=== PATIENT | female | born 1950 | race Caucasian/White ===

== ENCOUNTER 2016-12-22 08:56 | Inpatient (IN) | payer MEDICARE, OTHER ==
[~2016-12-22] VITALS: Ht 154.9 cm; Wt 68.8 kg
[~2016-12-22 08:56] MED LIST changes: -BENA25TA3 PO; -CELE50CA PO; -DOCU100C PO; -DOCU1CAP23 PO; -DOCU1CAP39 PO; -DULO1CAP PO; -DULO1CAP3 PO; -DULO20 PO; -GABA600T PO; -HYDR-3516 PO; -LACTCAP8 PO; -LISI-515 PO; -LISI-519 PO; -METF500 PO; -METF500T PO; -METH500T3 PO; -METO25TA3 PO; -MORP1TAB24 PO; -MSIR15 PO; -MULT-135 PO; -NEUR300C PO; -NEUR800T PO; -NEXI20CA PO; -NEXI40CA; -NEXI40CA PO; -NORC5TAB PO; -NYST15T TOPICAL; -PERI8.6T PO; -ROBA750T PO; -VERA40TA PO; -[UNRECOGNIZED DRUG - CODE]
[2016-12-22] MEDS ORDERED: ROBA750T PO (15:19)
[2016-12-22] MEDS ORDERED: CELE50CA PO (15:19)
[2016-12-22] MEDS ORDERED: GABA600T PO (15:19)
[2016-12-22] MEDS ORDERED: METF500T PO (15:19)
[2016-12-22] MEDS ORDERED: DOCU1CAP23 PO (15:19)
[2016-12-22] MEDS ORDERED: NEXI40CA PO (15:19)
[2016-12-22] MEDS ORDERED: MULT-135 PO (15:19)
[2016-12-22] MEDS ORDERED: LISI-515 PO (15:19)
[2016-12-26] MEDS ORDERED: BENA25TA3 PO (07:10)
[2016-12-26] MEDS ORDERED: DULO1CAP3 PO (07:11)
[2016-12-26] MEDS ORDERED: LACTCAP8 PO (07:13)
[2016-12-26 07:14] VITALS: BP 189/86; PULSE 81; RESP 20; TEMP 98.2; O2SAT 97
[2016-12-26] MEDS ORDERED: SODIUM CHLORIDE 0.9% INJ 100 ML ONE (07:14)
[2016-12-26] MEDS: LACTATED RINGER'S 1000 ML IV SCH (07:15)
[2016-12-26] MEDS ORDERED: CLINDAMYCIN 600 MG/NS 100 ML IV SCH ×2 (07:15)
[2016-12-26] MEDS ORDERED: INSULIN HUMAN REGULAR 1,000 UNITS/10 ML VIAL SQ PRN (07:15)
[2016-12-26] MEDS: SODIUM CHLORID 0.9% 500 ML IV SCH ×2 (07:15→23:55)
[2016-12-26] MEDS ORDERED: METOPROLOL TARTRATE 25 MG TAB PO PRN (07:15)
[2016-12-26] MEDS ORDERED: DEXAMETHASONE SOD PHOS 4 MG/ML VIAL ONE ×2 (08:08→10:27)
[2016-12-26] MEDS ORDERED: GELFOAM SIZE 100 ONE (08:08)
[2016-12-26] MEDS ORDERED: THROMBIN (TOPICAL) 5,000 UNIT VIAL ONE (08:08)
[2016-12-26] MEDS ORDERED: KETAMINE HCL 500 MG/5 ML VIAL ONE (08:08)
[2016-12-26] MEDS ORDERED: MIDAZOLAM HCL 2 MG/2 ML VIAL ONE ×2 (08:08→14:56)
[2016-12-26] MEDS ORDERED: FAMOTIDINE 20 MG/2 ML VIAL ONE (08:08)
[2016-12-26] MEDS ORDERED: GENTAMICIN SULFATE 80 MG/2 ML VIAL ONE (08:09)
[2016-12-26] MEDS ORDERED: LIDOCAINE 1%/EPINEPHrine 1:100,000 SOLN 20 ML VIAL ONE (08:10)
[2016-12-26] MEDS ORDERED: ACETAMINOPHEN 1000 MG/100 ML VIAL IV ONE (10:26)
[2016-12-26] MEDS ORDERED: SODIUM CHLORID 0.9% 500 ML INJ 500 ML IV ONE (10:49)
[2016-12-26] MEDS ORDERED: LACTATED RINGER'S 1000 ML INJ 2,000 ML IV ONE (10:49)
[2016-12-26] MEDS ORDERED: SODIUM CHLOR 0.9% 250 ML INJ 250 ML IV ONE (10:49)
[2016-12-26] MEDS ORDERED: ePHEDrine/NS 25 MG/5 ML SYR IV ONE (10:49)
[2016-12-26] MEDS ORDERED: PROPOFOL 200 MG/20 ML AMP IV ONE (10:49)
[2016-12-26] MEDS ORDERED: ONDANSETRON HCL 4 MG/2 ML VIAL IV PUSH ONE (10:49)
[2016-12-26] MEDS ORDERED: PHENYLEPHRINE HCL 10 MG/ML VIAL IV ONE (10:49)
[2016-12-26] MEDS ORDERED: PHENYLEPH/NS 1000 MCG/10 ML SYR IV ONE (10:49)
[2016-12-26] MEDS ORDERED: ARTIFICIAL TEARS OPTH OINT 3.5 APPLIC/3.5 GM TUBO ONE (11:14)
[2016-12-26] MEDS ORDERED: CLINDAMYCIN PHOS 600 MG/4 ML VIAL ONE (13:04)
[2016-12-26] MEDS ORDERED: fentaNYL CITRATE 250 MCG/5 ML AMP ONE (14:56)
[2016-12-26] MEDS ORDERED: NALOXONE HCL 0.4 MG/ML AMP IV PRN (15:45)
[2016-12-26] MEDS ORDERED: SODIUM CHLORIDE 0.9% FLUSH 5 ML FLUSH IVF PRN (15:45)
[2016-12-26 16:00] VITALS: BP 120/72; PULSE 85; RESP 16; TEMP 97; O2SAT 96
[2016-12-26] MEDS ORDERED: metFORMIN HCL 500 MG TAB PO PRN (16:00)
[2016-12-26] MEDS ORDERED: HYDROmorphone HCL PF 1 MG/ML VIAL IV PRN (16:00)
[2016-12-26] MEDS ORDERED: ONDANSETRON HCL 4 MG/2 ML VIAL IV PRN (16:00)
[2016-12-26] MEDS ORDERED: traMADol HCL 50 MG TAB PO PRN (16:00)
[2016-12-26] MEDS: D5-1/2 NS + KCL 20 MEQ INJ 1,000 ML IV SCH (16:10)
--- NOTE | 2016-12-26 16:12 | PD.OP ---
Operative Report Date of Surgery: Dec 26, 2016 Preoperative Diagnosis: (1) Cervical spinal stenosis (2) Cervical disc disorder with radiculopathy Postoperative Diagnosis: (1) Cervical spinal stenosis (2) Cervical disc disorder with radiculopathy Procedure: 1. C6-7 bilateral decompressive semi-laminectomy 2. Bilateral C6-7 foraminotomy 3. C5 C7 posterior fusion . Split iliac crest allograft, DBM 4. Posterior spinous process wiring 5. Left C5- C7 posterior spinal instrumentation, C7 pedicle screw fixation 6. Preparation of Iliac crest allograft for posterior cervical spinal fusion Anesthesia: Gen. endotracheal Surgeon: Quincy Bond Orthodontic Band Maker(s): Fariha Alvarez Operation and Findings: Procedure in detail: The patient was brought into the operating room and general endotracheal anesthesia induced without difficulty. Lines were established by anesthesia Knee high sequential compression devices were placed Appropriate time-out procedure was performed with all personnel present and in agreement The Reveles 3 point fixation device was placed. The patient was in a cervical collar for positioning Leads for intraoperative neuro monitoring were placed in a baseline study obtained The patient was turned into prone position on the Filipe table with the side bolsters with the undersigned maintaining control of the head and neck. The head and neck were secured to the operating room table with the Reveles adapter with the neck in neutral position. The neck position was checked with intraoperative C-arm and felt to be satisfactory. The cervical collar was removed. All extremities were appropriately padded. The back of the head and neck were shaved with clippers and sterilely prepped and draped. 1% Xylocaine with epinephrine was used for local infiltration over the incision site was made in the midline posterior neck and carried sharply down to the spinous processes of C5-C7 The handy elevator used for subperiosteal elevation of paraspinous musculature and fascia away from the bilateral lamina and facet at the C5-C7 levels Significant facet hypertrophy and osteophyte formation was noted at all levels There was noted to be severe disruption of the interspinous ligament at the C6- C7 level, with obvious significant facet instability Based on these findings, it was elected to proceed with the posterior instrumentation to stabilize the C6-C7 segment prior to decompression. The TPS drill with the small bone bur was used to decorticate the entry point into the left C7 pedicle. Since the patient's preoperative CT scan imaging revealed a relatively small right C7 pedicle as well as small right C5 and C6 and C7 lateral mass, it was elected to perform the instrumentation only on the left side. The small pedicle finder was used to verify the pedicle, followed by hand drilling the left C7 pedicle to 10 mm depth. The pedicle was again checked with the ball-tip probe to make sure that there was no breakout, prior to screw placement. The left C7 pedicle was tapped to depth of 10 mm and the variable angle pedicle screw was placed. An initial attempt was made to place a lateral mass screw at the left C6 level, however the lateral mass was rather small and fragile and would not adequately accommodate the screw. Thus it was elected to place a lateral mass screw at the left L4-5 level, where the lateral mass was drilled and tapped to a depth of 10 mm with the ball-tip probe used to check the lateral mass screw site prior to placement of the 10 mm variable-angle screw. The small connecting medina was temporarily secured at the left C5-C7 level to avoid excessive motion during the decompression. The small bone bur was used to decorticate the facet and posterolateral structures at the C5-C7 level prior to placement of the medina , and any bone shavings saved for graft material. The microscope was brought into place and used for the decompression portion of the procedure. The inferior C6 and superior C7 lamina were removed with the TPS drill and the Kerrison rongeur to further decompress the spinal cord at these levels. Significantly hypertrophied ligamentum flavum was then lifted away from the thecal sac and further removed with a Kerrison rongeur. The dorsal lateral thecal sac appeared well decompressed at the end of the laminectomy portion of the procedure with good pulsations of the CSF space. At the bilateral C6-C7 level, the neural foramen was palpated with the blunt micro-nerve hook, and there appeared to be significant facet hypertrophy impinging on the exiting nerve root. The foraminotomy was performed at this level using the small radha bur to remove the overlying facet down to a thin shell of cortical bone overlying the nerve root. The thin ligament dissector and 1 and 2 mm thin foot plate Kerrison rongeurs were then used to elevate and remove the remaining bone away from the dorsal aspect of the nerve root to perform the foraminotomy. The exiting right and left C7 nerve appeared well decompressed at the end of this portion of the procedure. The Rhoton dissectors were used to palpate ventral to the exiting C7 nerve root on each side and no significant herniated disc material was encountered ventral to the nerve root. On the left side, the micro-nerve hook was used to probe along the C7 pedicle and no breakout of the screw was noted. The locking caps were then all final tightened using the torque screwdriver and the anti-torque device at the left C5-7 level. The region was well irrigated with antibiotic irrigation. The retained lamina autograft and a small amount of demineralized bone matrix was packed along the posterior lateral decorticated structures as well as into the decorticated bilateral C5-C6-C7 facet on each side. Since the patient appeared quite unstable at the C6-7 level, and instrumentation could only be placed on the left side, it was elected to further reinforce the construct with a posterior spinous process-lamina split iliac crest allograft bone graft and spinous process wiring. The piece of properly prepared iliac tricortical graft was cut with the straight oscillating saw to the appropriate dimensions and contoured to fit against the decorticated C5, C6, C7 spinous processes. The small bur was used to place a hole on each end of the grafts as well as the C5 and C7 spinous process. The Codman soft wire was used to secure the bone grafts to the C5 and C7 spinous processes. Prior to final tightening, additional DBM and retained autograft bone was placed between the spinous processes and lamina and the adjacent split iliac crest graft for additional fusion mass. The soft wire excess cable was then cut. The entire construct was checked with intraoperative C-arm and visual inspection felt to be satisfactory. The neural structures were carefully checked prior to final closure and felt to be well decompressed. The region was well irrigated with antibiotic irrigation. Bleeding was carefully controlled with bipolar forceps A 7 mm flat fluted drain was left at the operative site and brought out through an incision in the upper thoracic region and secured to the skin with nylon suture The closure was performed with 0 Vicryl interrupted for the deep and superficial fascia with 3-0 Vicryl interrupted subcutaneous closure and 4-0 Vicryl subcutaneous closure. A dressing of sterile Mastisol and Steri-Strips and a Primapore dressing was placed. The patient was placed back in a cervical collar and released from the [place] adapter and turned back into supine position on the recovery room bed. The Reveles 3 point fixation device was then removed. The patient was taken to recovery room in stable condition All counts were correct at the end of the case. Estimated blood loss was 100 cc No specimen was sent to pathology Neural monitoring remained stable during the procedure Quincy Bond MD Dec 26, 2016 16:12
[2016-12-26] MEDS ORDERED: diphenhydrAMINE HCL 25 MG CAP PO PRN (16:15)
[2016-12-26] MEDS ORDERED: GLUCAGON 1 MG/ML VIAL OTHER PRN (16:15)
[2016-12-26] MEDS ORDERED: DEXTROSE 50% IN WATER 50 ML VIAL(D50) IV PUSH PRN (16:15)
[2016-12-26] MEDS ORDERED: *morphine SULFATE 8 MG/ML PERIprocedure ONLY ONE (16:17)
[2016-12-26] MEDS: ACETAMINOPHEN/HYDROcodone 325 MG/10 MG TAB PO PRN ×2 (17:23→21:36)
--- NOTE | 2016-12-26 17:58 | RADRPT ---
EXAM DATE/TIME: 12/26/2016 16:45 [facility] COMPARISON: CT CERVICAL SPINE W/O CONTRAST, July 20, 2016, 19:12. INDICATIONS : Assess C5-C7 instrumentation post op RADIATION DOSE: 42.85 CTDIvol (mGy) MEDICAL HISTORY : Cerebrovascular disease. Hypertension. SURGICAL HISTORY : Cholecystectomy. Appendectomy.Hysterectomy. ENCOUNTER: Initial ACUITY: 1 day PAIN SCALE: 5/10 LOCATION: neck TECHNIQUE: Volumetric scanning of the cervical spine was performed. Multiplanar reconstructions in the sagittal, coronal and oblique axial planes were performed. Using automated exposure control and adjustment o f the mA and/or kV according to patient size, radiation dose was kept as low as reasonably achievable to obtain optimal diagnostic quality images. FINDINGS: Patient status post anterior cervical fusion C4-5 and C5-6. There is posterior fusion on the left antoinette e at C5-7. There appears to be good alignment of the cervical spine. Postsurgical changes are noted p osteriorly. The hardware appears to be grossly intact. There is a mild narrowing of the neural forami na left-sided C2-C3. There is mild narrowing of the neural foramina right-sided C3-4. No significant extradural defects are seen at C4-5, C5-6. The neural foramina appear to be patent at these levels. N o significant extradural defects are seen at C6-7 and C7-T1. CONCLUSION: Status post anterior cervical fusion at C4-5 and C5-6. There is posterior fusion on the left-sided fr om C5-C7. The there appears to be good alignment of the cervical spine. Postsurgical changes are note d posteriorly at C5-C7. The hardware is grossly intact. Rodney Johns MD on December 26, 2016 at 17:49 Board Certified Radiologist. This report was verified electronically.
[2016-12-26 19:38] VITALS: O2SAT 95
[2016-12-26 20:05] VITALS: BP 109/62; PULSE 94; RESP 18; TEMP 96; O2SAT 94
[2016-12-26] MEDS: SODIUM CHLORIDE 0.9% FLUSH 5 ML FLUSH IVF SCH (20:22)
[2016-12-26] MEDS: METHOCARBAMOL 500 MG TAB PO PRN (20:23)
[2016-12-26] MEDS: DOCUSATE SODIUM 100 MG CAP PO SCH (20:23)
[2016-12-26] MEDS: GABAPENTIN 300 MG CAP PO SCH (20:23)
[2016-12-26] MEDS: LISINOPRIL 20 MG TAB PO SCH (20:24)
[2016-12-26] MEDS: INSULIN NovoLIN REGULAR SUPPLEMENTAL SCALE SQ SCH (20:34)
[2016-12-26] MEDS ORDERED: NON-FORMULARY DRUG (Esomeprazole DR (Nexium) 40 MG) PO SCH (21:00)
[2016-12-26] MEDS ORDERED: DOCUSATE SODIUM 250 MG PO SCH (21:00)
--- NOTE | 2016-12-26 21:10 | RADRPT ---
EXAM DATE/TIME: 12/26/2016 10:00 [facility] COMPARISON: No previous studies available for comparison. INDICATIONS : C5-C7 fusion. MEDICAL HISTORY : None. SURGICAL HISTORY : C4-C6 fusion. ENCOUNTER: Initial ACUITY: 1 day PAIN SCORE: Non-responsive. LOCATION: Bilateral cervical spine. FINDINGS: Two projection examination was performed. Patient is status post anterior and posterior cervical fusi on. There appears to be good alignment of the cervical spine infusion on these 2 views. CONCLUSION: Good alignment on this postoperative view. Rodney Johns MD on December 26, 2016 at 21:07 Board Certified Radiologist. This report was verified electronically.
[2016-12-27] VITALS (7 sets, daily range): BP systolic 131–198; BP diastolic 70–102; PULSE 82–100; RESP 16–20; TEMP 96.5–98.8; O2SAT 92–97
[2016-12-27] MEDS: ACETAMINOPHEN/HYDROcodone 325 MG/10 MG TAB PO PRN ×5 (02:00→21:24)
[2016-12-27] MEDS: D5-1/2 NS + KCL 20 MEQ INJ 1,000 ML IV SCH ×3 (02:00→22:00)
[2016-12-27 06:21] LABS: AUTOMATED NEUTROPHIL # 12.5 TH/MM3 (1.8-7.7); BASOPHIL # 0.2 TH/MM3 (0-0.2); EOSINOPHIL # 0.1 TH/MM3 (0-0.4); EOSINOPHIL % 0.7 % (0.0-4.0); HEMATOCRIT 33.1 % (35.0-46.0); LYMPH % 23.7 % (9.0-44.0); LYMPHOCYTE # 4.7 TH/MM3 (1.0-4.8); MEAN CELL VOLUME 83.5 FL (80.0-100.0); MEAN CORPUSCULAR HEMOGLOBIN 29.1 PG (27.0-34.0); MEAN CORPUSCULAR HGB CONC 34.9 % (32.0-36.0); MONO % 11.6 % (0.0-8.0); PLATELET COUNT 334 TH/MM3 (150-450); RED BLOOD COUNT 3.96 MIL/MM3 (4.00-5.30); RED CELL DISTRIBUTION WIDTH 13.8 % (11.6-17.2); WHITE BLOOD COUNT 19.9 TH/MM3 (4.0-11.0)
[2016-12-27 06:27] LABS: HEMO FLAGS AUTO DIFF
[2016-12-27] MEDS: INSULIN NovoLIN REGULAR SUPPLEMENTAL SCALE SQ SCH ×4 (06:30→21:22)
[2016-12-27 06:52] LABS: BICARBONATE 28.8 MEQ/L (21.0-32.0); POTASSIUM 3.8 MEQ/L (3.5-5.1)
[2016-12-27] MEDS: LACTATED RINGER'S 1000 ML IV SCH (07:15)
[2016-12-27 07:44] LABS: SCAN/DIFF AUTO DIFF CONFIRMED
[2016-12-27] MEDS ORDERED: PANTOPRAZOLE SOD 40 MG DELAYED RELEASE TAB PO SCH (09:00)
[2016-12-27] MEDS: LISINOPRIL 20 MG TAB PO SCH ×2 (09:33→21:23)
[2016-12-27] MEDS: DOCUSATE SODIUM 100 MG CAP PO SCH ×2 (09:40→21:23)
[2016-12-27] MEDS: MULTIVITAMIN TAB PO SCH (09:40)
[2016-12-27] MEDS: LACTOBACILLUS ACIDOPHILUS TAB PO SCH (09:40)
[2016-12-27] MEDS: DULoxetine HCl DR 60 MG CAP PO SCH (09:40)
[2016-12-27] MEDS: SODIUM CHLORIDE 0.9% FLUSH 5 ML FLUSH IVF SCH ×2 (09:41→21:24)
[2016-12-27] MEDS: GABAPENTIN 300 MG CAP PO SCH ×2 (09:41→21:23)
[2016-12-27] MEDS: METHOCARBAMOL 500 MG TAB PO PRN (09:55)
[2016-12-27] MEDS: hydrALAZINE HCL 10 MG TAB PO PRN (19:36)
--- NOTE | 2016-12-27 20:52 | HHI.NSPN ---
History Chief Complaint: headache, neck and shoulder pain. Interval History Date of Surgery: Dec 26, 2016 Preoperative Diagnosis: (1) Cervical spinal stenosis (2) Cervical disc disorder with radiculopathy Postoperative Diagnosis: (1) Cervical spinal stenosis (2) Cervical disc disorder with radiculopathy Procedure: 1. C6-7 bilateral decompressive semi-laminectomy 2. Bilateral C6-7 foraminotomy 3. C5 C7 posterior fusion . Split iliac crest allograft, DBM 4. Posterior spinous process wiring 5. Left C5- C7 posterior spinal instrumentation, C7 pedicle screw fixation 6. Preparation of Iliac crest allograft for posterior cervical spinal fusion 12/27/16: Significant persistent drain output. Positive headache. Upper extremity sensorimotor function improved postoperative. Exam Results Vital Signs Date Time Temp Pulse Resp B/P Pulse Ox O2 Delivery O2 Flow Rate FiO2 12/27/16 20:01 98.0 100 20 198/102 92 12/27/16 10:02 Nasal Cannula 21 12/26/16 16:30 2 Intake and Output 12/26/16 12/26/16 12/27/16 08:00 16:00 00:00 Intake Total 3100 ml 555 ml Output Total 1000 ml 805 ml Balance 2100 ml -250 ml Physical Examination Respirations clear Cardiac regular No significant extremity edema Dressing dry and intact Significant discomfort across her right and left shoulder with complaint of increased neck and shoulder pain with upper extremity movement Sensation much improved to light touch in the upper extremities versus preoperative. Strength 4/5 left triceps and hand intrinsics Moderate positive Alisia's Significant serosanguineous drainage from the operative site drain Lab, Micro, Other Results Laboratory Tests Test 12/27/16 05:57 White Blood Count 19.9 TH/MM3 Red Blood Count 3.96 MIL/MM3 Hemoglobin 11.5 GM/DL Hematocrit 33.1 % Mean Corpuscular Volume 83.5 FL Mean Corpuscular Hemoglobin 29.1 PG Mean Corpuscular Hemoglobin 34.9 % Concent Red Cell Distribution Width 13.8 % Platelet Count 334 TH/MM3 Mean Platelet Volume 9.5 FL Neutrophils (%) (Auto) 63.0 % Lymphocytes (%) (Auto) 23.7 % Monocytes (%) (Auto) 11.6 % Eosinophils (%) (Auto) 0.7 % Basophils (%) (Auto) 1.0 % Neutrophils # (Auto) 12.5 TH/MM3 Lymphocytes # (Auto) 4.7 TH/MM3 Monocytes # (Auto) 2.3 TH/MM3 Eosinophils # (Auto) 0.1 TH/MM3 Basophils # (Auto) 0.2 TH/MM3 CBC Comment AUTO DIFF Differential Comment AUTO DIFF CONFIRMED Sodium Level 143 MEQ/L Potassium Level 3.8 MEQ/L Chloride Level 106 MEQ/L Carbon Dioxide Level 28.8 MEQ/L Anion Gap 8 MEQ/L Blood Urea Nitrogen 8 MG/DL Creatinine 0.76 MG/DL Estimat Glomerular Filtration 76 ML/MIN Rate Random Glucose 250 MG/DL Calcium Level 8.1 MG/DL Medical Decision Making Impression and Plan Impression: 1. Neurologic symptoms and exam improved postoperative 2. Persistent increased operative site drain output. Monitor for possible CSF leak 3. Diabetes 4. Hypertension Plan: Findings discussed with the patient and her family in the room. Continue physical therapy Continue present pain medications Continue drain and monitor output. There is some concern regarding CSF leak given the quantity and appearance of the drain as well as positive headache. Continue insulin sliding scale Quincy Bond MD Dec 27, 2016 20:52
[2016-12-27] MEDS: MORPHINE SULFATE 4 MG/ML INJ IV PRN (23:56)
[2016-12-27] MEDS: PANTOPRAZOLE SOD 40 MG DELAYED RELEASE TAB PO SCH (23:56)
[2016-12-28 00:02] VITALS: BP 201/102; PULSE 97; RESP 20; TEMP 98.3; O2SAT 94
[2016-12-28] MEDS: METHOCARBAMOL 500 MG TAB PO PRN ×3 (00:22→20:55)
[2016-12-28] MEDS: ACETAMINOPHEN/HYDROcodone 325 MG/10 MG TAB PO PRN ×5 (03:39→22:36)
[2016-12-28] MEDS: hydrALAZINE HCL 10 MG TAB PO PRN ×2 (03:39→14:26)
[2016-12-28 04:01] VITALS: BP 192/100; PULSE 90; RESP 20; TEMP 99.1; O2SAT 93
[2016-12-28] MEDS: MORPHINE SULFATE 4 MG/ML INJ IV PRN ×3 (06:22→14:22)
[2016-12-28] MEDS: PANTOPRAZOLE SOD 40 MG DELAYED RELEASE TAB PO SCH ×2 (06:47→17:54)
[2016-12-28] MEDS: INSULIN NovoLIN REGULAR SUPPLEMENTAL SCALE SQ SCH ×4 (06:48→20:56)
[2016-12-28] MEDS: LACTATED RINGER'S 1000 ML IV SCH (07:15)
[2016-12-28 08:00] VITALS: BP 122/90; PULSE 88; RESP 16; TEMP 98.4; O2SAT 95
[2016-12-28] MEDS: D5-1/2 NS + KCL 20 MEQ INJ 1,000 ML IV SCH (08:00)
[2016-12-28] MEDS: LISINOPRIL 20 MG TAB PO SCH ×2 (08:53→20:55)
[2016-12-28] MEDS: GABAPENTIN 300 MG CAP PO SCH ×2 (08:54→20:56)
[2016-12-28] MEDS: LACTOBACILLUS ACIDOPHILUS TAB PO SCH (08:54)
[2016-12-28] MEDS: DULoxetine HCl DR 60 MG CAP PO SCH (08:54)
[2016-12-28] MEDS: DOCUSATE SODIUM 100 MG CAP PO SCH ×2 (08:54→20:55)
[2016-12-28] MEDS: SODIUM CHLORIDE 0.9% FLUSH 5 ML FLUSH IVF SCH ×2 (08:56→20:56)
[2016-12-28] MEDS: MULTIVITAMIN TAB PO SCH (09:00)
[2016-12-28 12:00] VITALS: BP 190/96; PULSE 90; RESP 16; TEMP 99.8; O2SAT 94
[2016-12-28 16:00] VITALS: BP 146/93; PULSE 86; RESP 16; TEMP 97.4; O2SAT 97
--- NOTE | 2016-12-28 18:47 | HHI.NSPN ---
History Chief Complaint: headache, neck and shoulder pain. Interval History Date of Surgery: Dec 26, 2016 Preoperative Diagnosis: (1) Cervical spinal stenosis (2) Cervical disc disorder with radiculopathy Postoperative Diagnosis: (1) Cervical spinal stenosis (2) Cervical disc disorder with radiculopathy Procedure: 1. C6-7 bilateral decompressive semi-laminectomy 2. Bilateral C6-7 foraminotomy 3. C5 C7 posterior fusion . Split iliac crest allograft, DBM 4. Posterior spinous process wiring 5. Left C5- C7 posterior spinal instrumentation, C7 pedicle screw fixation 6. Preparation of Iliac crest allograft for posterior cervical spinal fusion 12/27/16: Significant persistent drain output. Positive headache. Upper extremity sensorimotor function improved postoperative. 12/28/16: Persistent significant neck and shoulder pain. Not well controlled with oral medications as far. Sensation improved in upper extremities and gait improved compared to preoperative. Drain discontinued. Exam Results Vital Signs Date Time Temp Pulse Resp B/P Pulse Ox O2 Delivery O2 Flow Rate FiO2 12/28/16 12:00 99.8 90 16 190/96 94 12/28/16 07:15 Room Air 12/27/16 10:02 21 12/26/16 16:30 2 Intake and Output 12/27/16 12/27/16 12/28/16 08:00 16:00 00:00 Intake Total 480 ml 600 ml 480 ml Output Total 1425 ml 2300 ml 580 ml Balance -945 ml -1700 ml -100 ml Physical Examination Respirations clear Cardiac regular No significant extremity edema Dressing dry and intact Significant discomfort across her right and left shoulder with complaint of increased neck and shoulder pain with upper extremity movement Sensation much improved to light touch in the upper extremities versus preoperative. Strength 4/5 left triceps and hand intrinsics Moderate positive Alisia's drain discontinued Medical Decision Making Impression and Plan Impression: 1. Neurologic symptoms and exam improved postoperative 2. Drain discontinued. No definite evidence of CSF leak. Headache improved. 3. Diabetes 4. Hypertension Plan: Findings discussed with the patient and her family in the room. Continue physical therapy Will add MS Contin for additional pain control. Drains discontinued. Monitor wound site for any significant drainage. Continue insulin sliding scale Plan discharge home in a.m. 12/29/16. Patient needs to make arrangements for additional assistance at home. Home physical therapy. Quincy Bond MD Dec 28, 2016 18:47
[2016-12-28] MEDS ORDERED: HYDR-3533 PO (18:52)
[2016-12-28] MEDS ORDERED: MORP1TAB24 PO (18:52)
[2016-12-28] MEDS ORDERED: METH500T3 PO (18:52)
--- NOTE | 2016-12-28 18:52 | HHI.DCPOC ---
Discharge Care Plan Diagnosis: (1) Cervical spinal stenosis (2) Cervical disc disease with myelopathy Your Health Problems Are: Difficulty with ADL Incision/Drains Exercise Tolerance Chronic Pain Goals to Promote Your Health * To prevent worsening of your condition and complications * To maintain your health at the optimal level Directions to Meet Your Goals Take your medications as prescribed Follow your dietary instruction Follow activity as directed Keep your appointments as scheduled Take your immunizations and boosters as scheduled If your symptoms worsen call your PCP, if no PCP go to Urgent Care Center or Emergency Room Smoking is Dangerous to Your Health. Avoid second hand smoke Call the 24-hour hour crisis hotline for domestic abuse at Quincy Bond MD Dec 28, 2016 18:52
--- NOTE | 2016-12-28 18:56 | HHI.DS ---
Discharge Summary Admission Date Dec 26, 2016 at 06:22 Discharge Date: Dec 29, 2016 Admitting Diagnosis Cervical stenosis Cervical myelopathy Diabetes Hypertension (1) Cervical spinal stenosis Diagnosis: Secondary ICD Code: M48.02 (2) Cervical disc disease with myelopathy Diagnosis: Principal ICD Code: M50.00 (3) DM type 2 (diabetes mellitus, type 2) Diagnosis: Secondary ICD Code: E11.9 (4) HTN (hypertension) Diagnosis: Secondary ICD Code: I10 CBC/BMP: 12/27/16 0557 12/27/16 0557 Significant Findings Laboratory Tests Test 12/27/16 05:57 White Blood Count 19.9 TH/MM3 (4.0-11.0) Red Blood Count 3.96 MIL/MM3 (4.00-5.30) Hemoglobin 11.5 GM/DL (11.6-15.3) Hematocrit 33.1 % (35.0-46.0) Monocytes (%) (Auto) 11.6 % (0.0-8.0) Neutrophils # (Auto) 12.5 TH/MM3 (1.8-7.7) Monocytes # (Auto) 2.3 TH/MM3 (0-0.9) Estimat Glomerular Filtration 76 ML/MIN (>89) Rate Random Glucose 250 MG/DL (74-106) Calcium Level 8.1 MG/DL (8.5-10.1) Imaging Last Impressions Cervical Spine X-Ray 12/26/16 0000 Signed Impressions: Service Date/Time: Monday, December 26, 2016 10:00 - CONCLUSION: Good alignment on this postoperative view. Rodney Johns MD Cervical Spine CT 12/26/16 0000 Signed Impressions: Service Date/Time: Monday, December 26, 2016 16:45 - CONCLUSION: Status post anterior cervical fusion at C4-5 and C5-6. There is posterior fusion on the left-sided from C5-C7. The there appears to be good alignment of the cervical spine. Postsurgical changes are noted posteriorly at C5-C7. The hardware is grossly intact. Rodney Johns MD PE at Discharge Awake and alert Respirations clear Heart rate regular No significant extremity edema Incision dry and intact Sensation mildly diminished light touch in the hands but improved compared to preoperative Strength normal upper and lower extremities Moderate bilateral Alisia's response Pt Condition on Discharge: Stable Discharge Disposition: Disch w/ Home Health Serv Discharge Instructions DIET: Follow Instructions for: Diabetic Diet ACTIVITIES You can perform: Weight Bearing As Geoff Activities to Avoid: Lifting/Bending, Strenuous Activity Follow up Referrals: Home Health - Next Day Physical Therapy New Medications: Methocarbamol (Methocarbamol) 500 Mg Tab 500 MG PO Q8HR PRN SPASM #30 Ref 0 TAB Morphine ER (Morphine ER) 15 Mg Tab 15 MG PO Q12HR Pain Management #20 Ref 0 TAB Continued Medications: Diphenhydramine (Benadryl Allergy) 25 Mg Tab 25 MG PO HS PRN ALLERGIES Ref 0 TAB Docusate Sodium (Stool Softener Extra Strength) 250 Mg Cap 250 MG PO BID CAP Duloxetine DR (Duloxetine DR) 60 Mg Capdr 60 MG PO DAILY #30 Ref [address] (Nexium) 40 Mg Capdr 40 MG PO BID Ref 0 CAP Gabapentin (Gabapentin) 600 Mg Tab 600 MG PO BID #60 Ref 0 TAB Hydralazine (Hydralazine) 10 Mg Tab 20 MG PO Q8HR Take with a meal check BP at home 2-3 x per day PRN SBP>180, DBP> 110 #30 Ref 0 TAB Hydrocodone-Acetaminophen (Lortab) 5-325 Mg Tab 1 TAB PO Q6HR PRN PAIN #60 Ref 0 TAB (This prescription has been renewed) Lactobacillus Acidophilus (Probiotic) 1 Cap Cap 1 CAP PO DAILY Nutritional Supplement #90 Ref 0 CAP Lisinopril (Lisinopril) 20 Mg Tab 20 MG PO BID #30 Ref 0 TAB Metformin (Metformin) 500 Mg Tab 500 MG PO DIRECTED 1 TAB BEFORE MEAL IF BLOOD SUGAR IS GREATER THAN 120. Blood Sugar Management #90 Ref 0 TAB Methocarbamol (Robaxin) 750 Mg Tab 750 MG PO TID Muscle Spasm Ref 0 TAB Multiple Vitamin (Multi Vitamin) 1 Tab Tab 1 TAB PO DAILY TAB Quincy Bond MD Dec 28, 2016 18:56
--- NOTE | 2016-12-28 19:05 | HHI.FF ---
Face to Face Verification Diagnosis: (1) Cervical spinal stenosis (2) Cervical disc disease with myelopathy (3) HTN (hypertension) Physical Therapy Order: Evaluate and Treat, Improve ambulation, Strength and gait training Home Health Nursing Order: Medical education Wound care and dressing changes I have seen patient Caprice Salas on 12/28/16. My clinical findings support the need for the requested home health care services because: Ltd mobility - disease progression Deconditioned w/ increased weakness Limited ability to care for self High risk of falls I certify that my clinical findings support that this patient is homebound because: Post-op weakness Unsteady gait/balance Quincy Bond MD Dec 28, 2016 19:05
[2016-12-28 20:01] VITALS: BP 101/69; PULSE 108; RESP 20; TEMP 96; O2SAT 95
[2016-12-28] MEDS: MORPHINE SULFATE 15 MG CONTROLLED RELEASE TAB PO SCH (20:56)
[2016-12-29 00:30] VITALS: BP 133/77; PULSE 94; RESP 20; TEMP 98.4; O2SAT 96
[2016-12-29] MEDS: ACETAMINOPHEN/HYDROcodone 325 MG/10 MG TAB PO PRN (03:22)
[2016-12-29] MEDS: PANTOPRAZOLE SOD 40 MG DELAYED RELEASE TAB PO SCH (06:53)
[2016-12-29] MEDS: INSULIN NovoLIN REGULAR SUPPLEMENTAL SCALE SQ SCH ×2 (06:53→11:35)
[2016-12-29 08:00] VITALS: BP 137/80; PULSE 116; RESP 18; TEMP 99.5; O2SAT 94
[2016-12-29] MEDS: DOCUSATE SODIUM 100 MG CAP PO SCH (08:44)
[2016-12-29] MEDS: LACTOBACILLUS ACIDOPHILUS TAB PO SCH (08:44)
[2016-12-29] MEDS: DULoxetine HCl DR 60 MG CAP PO SCH (08:45)
[2016-12-29] MEDS: LISINOPRIL 20 MG TAB PO SCH (08:45)
[2016-12-29] MEDS: MULTIVITAMIN TAB PO SCH (08:45)
[2016-12-29] MEDS: GABAPENTIN 300 MG CAP PO SCH (08:45)
[2016-12-29] MEDS: MORPHINE SULFATE 15 MG CONTROLLED RELEASE TAB PO SCH (08:46)
[2016-12-29] MEDS: METHOCARBAMOL 500 MG TAB PO PRN (08:49)
[2016-12-29] MEDS: SODIUM CHLORIDE 0.9% FLUSH 5 ML FLUSH IVF SCH (08:50)
[2016-12-29 11:29] VITALS: BP 116/75; PULSE 103; RESP 18; TEMP 100.4; O2SAT 94
[2017-01-04] MEDS ORDERED: HYDR-3533 PO (11:21)
[2017-01-04] MEDS ORDERED: HYDR10TA23 PO (11:21)
[2017-01-04] MEDS ORDERED: MORP1TAB24 PO (11:21)
[2017-02-15] MEDS ORDERED: HYDR10TA23 PO (14:08)
[2017-02-15] MEDS ORDERED: HYDR-3533 PO (16:38)
[2017-03-29] MEDS ORDERED: HYDR-3533 PO (12:03)
== END 2016-12-29 11:49 | disposition home health service (06) | DRG 473 ==
LOC: HSDI 12-26 06:22 → N06B 12-26 17:24
PROVIDERS: ADMIT Neurological Surgery; ATTEND Neurological Surgery
PROC: 0RG207J Fusion of 2 or more Cervical Vertebral Joints with Autologous Tissue Substitute, Posterior Approach, Anterior Column, Open Approach (ICD-10-PCS; principal; 2016-12-26 08:26)
DX: M50.023 Cervical disc disorder at C6-C7 level with myelopathy (principal); M50.022 Cervical disc disorder at C5-C6 level with myelopathy; I10 Essential (primary) hypertension; M48.02 Spinal stenosis, cervical region; E11.9 Type 2 diabetes mellitus without complications
CPT/HCPCS: 72040; 72125; 76000; 80048; 82948; 85025; 94150; C1713; J0131; J1100; J1580; J2250; J2270; J2370; J2405; J3010; J3480; J7040; J7050; J7120; L0150; L0172

== ENCOUNTER → 2016-12-22 | Outpatient (CLI) | payer MEDICARE, OTHER ==
[~2016-12-22] MED LIST: BENA25TA3 PO; CELE50CA PO; DOCU100C PO; DOCU1CAP23 PO; DOCU1CAP39 PO; DULO1CAP PO; DULO1CAP3 PO; DULO20 PO; GABA600T PO; HYDR-3516 PO; HYDR-3533 PO; HYDR10TA23 PO; LACTCAP8 PO; LISI-515 PO; LISI-519 PO; METF500 PO; METF500T PO; METH500T3 PO; METO25TA3 PO; MORP1TAB24 PO; MSIR15 PO; MULT-135 PO; NEUR300C PO; NEUR800T PO; NEXI20CA PO; NEXI40CA; NEXI40CA PO; NORC5TAB PO; NYST15T TOPICAL; PERI8.6T PO; ROBA750T PO; VERA40TA PO; [UNRECOGNIZED DRUG - CODE]
[2016-12-22 11:22] LABS: HDL CHOLESTEROL 55.5 MG/DL (40.0-60.0); LDL CHOLESTEROL 134 MG/DL (0-99)
[2016-12-22 13:54] LABS: HEMOGLOBIN A1b 1.7 %; HEMOGLOBIN P3 3.6 %
== END ==
LOC: CLAB 09:01
DX: I10 Essential (primary) hypertension (principal); E11.9 Type 2 diabetes mellitus without complications; E55.9 Vitamin D deficiency, unspecified; R53.83 Other fatigue; Z12.11 Encounter for screening for malignant neoplasm of colon
CPT/HCPCS: 36415; 80053; 80061; 82306; 82607; 83036; 84443; 85027; 85610; 85730

== ENCOUNTER → 2016-12-22 | Outpatient (CLI) | payer MEDICARE, OTHER ==
[2016-12-22 10:35] LABS: HEMATOCRIT 40.6 % (35.0-46.0); MEAN CORPUSCULAR HEMOGLOBIN 28.7 PG (27.0-34.0); MEAN CORPUSCULAR HGB CONC 34.5 % (32.0-36.0); PLATELET COUNT 449 TH/MM3 (150-450); RED CELL DISTRIBUTION WIDTH 13.8 % (11.6-17.2); REVIEW FLAG FINAL; WHITE BLOOD COUNT 12.5 TH/MM3 (4.0-11.0)
[2016-12-22 10:43] LABS: APTT (PATIENT) 25.4 SEC (24.3-30.1); PROTHROMBIN TIME - PATIENT 11.4 SEC (9.8-11.6)
[2016-12-22 11:00] LABS: ALKALINE PHOSPHATASE 102 U/L (45-117); ALT (GPT) 15 U/L (10-53); ANION GAP 7 MEQ/L (5-15); AST (GOT) 13 U/L (15-37); BICARBONATE 31.6 MEQ/L (21.0-32.0); BLOOD UREA NITROGEN 10 MG/DL (7-18); CHLORIDE 103 MEQ/L (98-107); GLOMERULAR FILTRATION RATE 72 ML/MIN (>89); GLUCOSE,FASTING 118 MG/DL (74-99); POTASSIUM 3.6 MEQ/L (3.5-5.1); SODIUM (NA) 142 MEQ/L (136-145); TOTAL BILIRUBIN ADULT 0.4 MG/DL (0.2-1.0)
== END ==
LOC: CPRE 08:43
PROVIDERS: ATTEND Neurological Surgery
DX: Z01.812 Encounter for preprocedural laboratory examination (principal); M48.06 Spinal stenosis, lumbar region; M54.16 Radiculopathy, lumbar region; E11.9 Type 2 diabetes mellitus without complications; E78.4 Other hyperlipidemia; Z79.01 Long term (current) use of anticoagulants
CPT/HCPCS: 36415; 80053; 85027; 85610; 85730

== ENCOUNTER → 2017-02-15 | Outpatient (CLI) | payer MEDICARE, OTHER ==
[~2017-02-15] MED LIST changes: +BENA25TA3 PO; +DOCU1CAP23 PO; +DULO1CAP3 PO; +GABA600T PO; +LACTCAP8 PO; +LISI-515 PO; +METF500T PO; +METH500T3 PO; +MORP1TAB24 PO; +MULT-135 PO; +NEXI40CA PO; +ROBA750T PO
--- NOTE | 2017-02-15 14:31 | RADRPT ---
EXAM DATE/TIME: 02/15/2017 11:13 [facility] COMPARISON: [facility] ([facility]), December 26, 2016, 10:00. INDICATIONS : Neck pain; cervical disc disease with myelopathy. MEDICAL HISTORY : Cerebrovascular disease. Hypertension. SURGICAL HISTORY : Cholecystectomy. Appendectomy.Hysterectomy. Cervical fusion. ENCOUNTER: Initial ACUITY: 7 - 11 months PAIN SCORE: 3/10 LOCATION: Cervical spine FINDINGS: Ventral cervical fusion hardware is present from C4 to C6. Posterior hardware is present on the left side from C4-C6. There appears to be dorsal bone graft material secured with cerclage wire. The align ment is stable and satisfactory. Hardware is intact. CONCLUSION: Satisfactory cervical fusion appearance Montez Canchola MD on February 15, 2017 at 13:54 Board Certified Radiologist. This report was verified electronically.
== END ==
LOC: HRAD 10:52
PROVIDERS: ATTEND Neurological Surgery
DX: M50.00 Cervical disc disorder with myelopathy, unspecified cervical region (principal)
CPT/HCPCS: 72040; 99212; G0463

== ENCOUNTER → 2018-02-15 | Outpatient (CLI) | payer MEDICARE, OTHER ==
[~2018-02-15] MED LIST changes: +ASPI-183 PO; +BACL10TA PO; +BENA25CA4 PO; -BENA25TA3 PO; +CALC500T55 PO; +CLOT1CRE6 TOPICAL; +CYMB60CA PO; -DULO1CAP3 PO; +GABA300C5 PO; -GABA600T PO; +HYDR-3516; -HYDR-3533 PO; +HYDR-3583 PO; +HYDR-3798 PO; -HYDR10TA23 PO; -LACTCAP8 PO; +LIPI20TA PO; -METH500T3 PO; +METH750T; -MORP1TAB24 PO; -MULT-135 PO; +MULT1TAB46; -NEXI40CA PO; +ONETAB22 PO; -ROBA750T PO; +VOLT1GEL16 TOPICAL
[2018-02-15 08:56] LABS: HEMATOCRIT 41.1 % (35.0-46.0); HEMOGLOBIN 14.3 GM/DL (11.6-15.3); MEAN CELL VOLUME 84.9 FL (80.0-100.0); MEAN CORPUSCULAR HEMOGLOBIN 29.6 PG (27.0-34.0); MEAN CORPUSCULAR HGB CONC 34.8 % (32.0-36.0); MEAN PLATELET VOLUME 9.3 FL (7.0-11.0); PLATELET COUNT 439 TH/MM3 (150-450); RED BLOOD COUNT 4.84 MIL/MM3 (4.00-5.30); RED CELL DISTRIBUTION WIDTH 12.6 % (11.6-17.2); WHITE BLOOD COUNT 11.1 TH/MM3 (4.0-11.0)
[2018-02-15 09:06] LABS: INTERNATIONAL NORMALIZED RATIO 1.1 RATIO; PROTHROMBIN TIME - PATIENT 10.9 SEC (9.8-11.6)
[2018-02-15 09:29] LABS: BICARBONATE 31.1 MEQ/L (21.0-32.0); CALCIUM 9.1 MG/DL (8.5-10.1); CREATININE 0.72 MG/DL (0.50-1.00)
--- NOTE | 2018-02-15 09:49 | RADRPT ---
EXAM DATE/TIME: 02/15/2018 09:13 [facility] COMPARISON: No previous studies available for comparison. INDICATIONS : Evaluate for penumonia, pneumothorax, or communicable disease. Pre op for cervical fusion. MEDICAL HISTORY : Gastroesophageal reflux disease. Hypertension Arthritis. Fibromyalgia. Arthritis. SURGICAL HISTORY : Fusion, cervical. Cholecystectomy. Splenectomy. Appendectomy. Diabetic. ENCOUNTER: Initial ACUITY: 1 day PAIN SCORE: 0/10 LOCATION: chest FINDINGS: PA and lateral views of the chest demonstrate the lungs to be symmetrically aerated without evidence of mass, infiltrate or effusion. The cardiomediastinal contours are unremarkable. Osseous structure s are intact. CONCLUSION: No acute cardiopulmonary disease. Mazin Menjivar MD on February 15, 2018 at 9:47 Board Certified Radiologist. This report was verified electronically.
--- NOTE | 2018-02-15 14:28 | EKG ---
Date Performed: 02/15/2018 Time Performed: 08:21:25 PTAGE: 67 years EKG: Sinus rhythm POSSIBLE LEFT ATRIAL ENLARGEMENT LOW QRS VOLTAGE IN PRECORDIAL LEADS BORDERLINE ECG Since the PREVIOUS TRACING , no significant change noted PREVIOUS TRACIN07/27/2016 16.25 DOCTOR: Lilliana Philippe Interpretating Date/Time 02/15/2018 14:21:50
== END ==
LOC: CPRE 07:54
PROVIDERS: ATTEND Neurological Surgery
DX: Z01.810 Encounter for preprocedural cardiovascular examination (principal); Z01.811 Encounter for preprocedural respiratory examination; Z01.812 Encounter for preprocedural laboratory examination; M50.80 Other cervical disc disorders, unspecified cervical region; I48.91 Unspecified atrial fibrillation; R94.31 Abnormal electrocardiogram [ECG] [EKG]
CPT/HCPCS: 36415; 71046; 80048; 85027; 85610; 85730; 87640; 87641; 93005

== ENCOUNTER 2018-02-22 11:20 | Observation (INO) | payer MEDICARE, OTHER ==
[~2018-02-22] VITALS: Ht 154.9 cm; Wt 69.3 kg
[~2018-02-22 11:20] MED LIST changes: -BENA25CA4 PO; -CLOT1CRE6 TOPICAL; -HYDR-3583 PO
[2018-02-22] MEDS ORDERED: ePHEDrine/NS 25 MG/5 ML SYRINGE IV ONE (12:00)
[2018-02-22] MEDS ORDERED: METOPROLOL TARTRATE 25 MG TAB PO PRN (12:00)
[2018-02-22] MEDS ORDERED: SODIUM CHLORID 0.9% 500 ML IV PRN (12:00)
[2018-02-22] MEDS ORDERED: DEXAMETHASONE SOD PHOS 4 MG/ML VIAL IV ONE (12:00)
[2018-02-22] MEDS ORDERED: LIDOCAINE HCL 1% PF 5 ML SYRINGE OTHER ONE (12:00)
[2018-02-22] MEDS ORDERED: LACTATED RINGER'S 1000 ML INJ 2,000 ML IV ONE (12:00)
[2018-02-22] MEDS ORDERED: ROCURONIUM INJ 50 MG/5 ML SYRINGE IV PUSH ONE (12:00)
[2018-02-22] MEDS ORDERED: PHENYLEPH/NS 1000 MCG/10 ML SYR IV ONE (12:00)
[2018-02-22] MEDS ORDERED: ONDANSETRON HCL 4 MG/2 ML VIAL IV PUSH ONE (12:00)
[2018-02-22] MEDS ORDERED: PROPOFOL 200 MG/20 ML AMP IV ONE (12:00)
[2018-02-22] MEDS ORDERED: GELFOAM SIZE 100 ONE (12:16)
[2018-02-22] MEDS ORDERED: THROMBIN (TOPICAL) 5,000 UNIT VIAL ONE (12:16)
[2018-02-22] MEDS ORDERED: LIDOCAINE 1%/EPINEPHrine 1:100,000 SOLN 20 ML VIAL ONE (12:16)
[2018-02-22] MEDS ORDERED: GENTAMICIN SULFATE 80 MG/2 ML VIAL ONE (12:17)
[2018-02-22] MEDS: LACTATED RINGER'S 1000 ML IV PRN ×2 (12:30→19:08)
[2018-02-22] MEDS ORDERED: CLOT1CRE6 TOPICAL ×2 (12:40)
[2018-02-22] MEDS ORDERED: BENA25CA4 PO ×2 (12:40)
[2018-02-22] MEDS ORDERED: CLINDAMYCIN PHOS 600 MG/4 ML VIAL ONE (12:44)
[2018-02-22] MEDS ORDERED: MIDAZOLAM HCL 2 MG/2 ML VIAL ONE (16:38)
[2018-02-22] MEDS ORDERED: PROPOFOL 500 MG/50 ML INJ 50 ML ONE (16:38)
--- NOTE | 2018-02-22 16:51 | RADRPT ---
EXAM DATE/TIME: 02/22/2018 14:00 [place] COMPARISON: No previous studies available for comparison. INDICATIONS : C6-C7 Hardware removal and replacement, anterior, in operating room. MEDICAL HISTORY : Cerebrovascular disease. Gastroesophageal reflux disease. Hypertension Arthritis. Fibromyalgia. Arthritis. SURGICAL HISTORY : Fusion, cervical. Cholecystectomy. Splenectomy. Appendectomy. ENCOUNTER: Initial ACUITY: 1 day PAIN SCORE: Non-responsive. LOCATION: C-spine FINDINGS: A single lateral view of the cervical spine was performed. There is postoperative fusion across 2 lev els of the cervical spine, probably C6-7 and C4-5. Posterior medina and screw fixation also present. CONCLUSION: 1. Cervical fixation as above. Rylan Christina MD on February 22, 2018 at 16:47 Board Certified Radiologist. This report was verified electronically.
[2018-02-22] MEDS ORDERED: DO NOT ADM ANY ANTICOAGULANT DRUGS PRN (17:00)
[2018-02-22] MEDS: LACTATED RINGER'S 1000 ML INJ 1,000 ML IV SCH (18:00)
[2018-02-22] MEDS ORDERED: DICLOFENAC SODIUM TOPICAL SCH (18:00)
[2018-02-22] MEDS: BACLOFEN 10 MG TAB PO SCH (18:36)
[2018-02-22 18:46] VITALS: BP 119/58; PULSE 82; RESP 18; TEMP 97.4; O2SAT 96
[2018-02-22 20:00] VITALS: BP 162/76; PULSE 92; RESP 18; TEMP 98.6; O2SAT 99
[2018-02-22 20:28] VITALS: O2SAT 96
[2018-02-22] MEDS ORDERED: ACETAMINOPHEN/HYDROcodone 325 MG/5 MG TAB PO PRN (20:45)
[2018-02-22] MEDS ORDERED: MORPHINE SULFATE 2 MG/ML SYRINGE IV PUSH PRN (20:45)
[2018-02-22] MEDS ORDERED: GLUCAGON 1 MG/ML VIAL OTHER PRN (20:45)
[2018-02-22] MEDS ORDERED: NALOXONE HCL 0.4 MG/ML AMP IV PUSH PRN (20:45)
[2018-02-22] MEDS ORDERED: DEXTROSE 50% IN WATER 50 ML VIAL(D50) IV PUSH PRN (20:45)
--- NOTE | 2018-02-22 20:54 | PD.OP ---
Operative Report Date of Surgery: February 22, 2018 Preoperative Diagnosis: (1) Cervical disc disease with myelopathy (2) Cervical spinal stenosis 1. C6-7 posterior osteophytic disc complex with severe stenosis 2. Cervical myelopathy 3. Previous C4-6 ACDF Postoperative Diagnosis: (1) Cervical disc disease with myelopathy (2) Cervical spinal stenosis 1. C6-7 posterior osteophytic disc complex with severe stenosis 2. Cervical myelopathy 3. Previous C4-6 ACDF Procedure: 1. C6-7 anterior cervical discectomy, resection herniated nucleus pulposus 2. C6-7 anterior cervical interbody fusion, allograft bone 3. C6-7 anterior cervical instrumentation 4. Removal previous inferior C5-6 level anterior cervical plate Anesthesia: General endotracheal Surgeon: Quincy Bond Side Trimmer(s): Daren Tran Operation and Findings: Findings: Desiccated herniated disc material C6-7 level Procedure in detail: The patient was brought into the operating room and positioned in supine position on the 3080 table with the head and neck in neutral position. Edward catheter was placed. Lines were established by Anesthesia. Gen. endotracheal anesthesia was induced without difficulty, taking care not to significantly flex or extend the patient's neck during intubation and positioning. Leads for intraoperative neuro monitoring were placed and a baseline study obtained. All extremities were appropriately padded. The neck and upper chest were shaved with clippers and sterilely prepped and draped. Appropriate timeout procedure was performed with all personnel present and in agreement 1% Xylocaine with epinephrine was used for local infiltration over the incision site which was made transversely at the left C7 level and carried sharply down through the platysma muscle. The exposure was continued medial to the sternocleidomastoid muscle and carotid artery, and lateral to the trachea and esophagus. The prevertebral fascia was elevated away from the anterior longitudinal ligament with a Kitner sponge. The longus coli muscle on each side was elevated with the Campbell elevator. The self-retaining retractor was placed with the blades beneath the longus coli muscle on each side. The appropriate levels were confirmed with intraoperative C-arm and preoperative imaging studies. The microscope was brought into place and used for the remainder of the procedure including the closure. The 14 mm distraction pins were used as needed for gentle distraction during the procedure. The procedure was performed at the C6-7 level The previous inferior C4-6 anterior cervical plate was removed with the bone cutting drill and the screws removed. The C6-7 anterior osteophyte was resected with the Leksell rongeur. The C6-7 disc and annulus was incised with a 15 blade knife and discectomy performed with pituitary biopsy forceps and straight and angled curettes. The TPS drill with the 5 mm barrel bur was used to decorticate the endplates and removed the majority of the osteophyte along the anterior spinal canal as well as the right and left uncovertebral joint. The thin ligament dissector was used to free up the posterior annulus and ligament from the vertebral body margin. The remainder of the resection of the posterior annulus and ligament as well as the posterior osteophyte and bilateral uncovertebral joint was performed with the 2 and 3 mm thin footplate Kerrison rongeurs. A component of herniated nucleus pulposus was encountered posterior to the annulus and was lifted away from the thecal sac with the thickened ligament dissector and removed. Significant posterior osteophyte was encountered and extensively removed. The posterior vertebral bodies were undercut with the Kerrison rongeur and the TPS drill with the 4 mm radha bur as needed to fully decompress the anterior spinal canal. The appropriate size V G2 bone graft was then placed at each level with a good fit of the graft. The blunt nerve hook was used to probe beneath the bone graft to ensure that there was no impingement on the thecal sac or exiting nerve roots. The appropriate size Precision anterior cervical plate was then chosen and the bone screws were placed with the 16 mm fixed screws at the caudal most level and the 16 mm variable screws at the cephalad level of the decompression. The screws were firmly secured and the locking cams engaged. The entire construct was checked with intraoperative C-arm and felt to be satisfactory. The 10 Irish drain was brought out through a small incision in the left lower neck and secured to the skin with nylon suture and attached to sterile suction. The closure was performed with 3-0 Vicryl running for the platysma and interrupted for the subcutaneous closure, with 4-0 Vicryl running for the subcuticular closure. A dressing of sterile Mastisol, Steri-Strips, and Primapore dressing was placed. The patient was placed into a cervical collar, and taken to recovery room in stable condition. All counts were correct at the end of the case. Estimated blood loss was 80 cc No specimen was sent to pathology. Intraoperative neuro monitoring remained stable during the procedure. Quincy Bond MD February 22, 2018 20:54
[2018-02-22] MEDS ORDERED: CALCIUM CARB GLUC PO SCH (21:00)
[2018-02-22] MEDS ORDERED: hydrALAZINE HCL 10 MG TAB PO PRN (21:00)
[2018-02-22] MEDS ORDERED: MAG OX GLUC PO SCH (21:00)
[2018-02-22] MEDS ORDERED: DOCUSATE SODIUM 250 MG PO SCH ×2 (21:00)
[2018-02-22] MEDS: CLOTRIMAZOLE 1% CREAM 15 GM TOPICAL SCH (21:00)
[2018-02-22] MEDS ORDERED: MAGNESIUM PO SCH (21:00)
[2018-02-22] MEDS ORDERED: ATORVASTATIN 20 MG TAB PO SCH (21:00)
[2018-02-22] MEDS ORDERED: DOCUSATE 250 MG PO SCH (21:00)
[2018-02-22] MEDS ORDERED: [UNRECOGNIZED DRUG - OTHER] TOPICAL SCH (21:00)
[2018-02-22] MEDS ORDERED: [UNRECOGNIZED DRUG - OTHER] PO SCH (21:00)
[2018-02-22] MEDS ORDERED: HYDROmorphone HCL PF 0.5 MG/0.5 ML SYRINGE IV PRN (21:30)
[2018-02-22] MEDS: LISINOPRIL 20 MG TAB PO SCH (21:33)
[2018-02-22] MEDS: GABAPENTIN 300 MG CAP PO SCH (21:34)
[2018-02-22] MEDS: INSULIN NovoLIN REGULAR SUPPLEMENTAL SCALE SQ SCH (21:34)
[2018-02-22] MEDS: ACETAMINOPHEN/HYDROcodone 325 MG/10 MG TAB PO PRN (21:34)
[2018-02-23] VITALS: BP 150/68; PULSE 92; RESP 19; TEMP 97.9; O2SAT 94
[2018-02-23] MEDS: ACETAMINOPHEN/HYDROcodone 325 MG/10 MG TAB PO PRN ×3 (02:04→12:26)
[2018-02-23 04:00] VITALS: BP 140/70; PULSE 77; RESP 19; TEMP 97.7; O2SAT 95
[2018-02-23] MEDS: LACTATED RINGER'S 1000 ML INJ 1,000 ML IV SCH ×2 (04:00→12:27)
[2018-02-23 06:10] LABS: AUTOMATED NEUTROPHIL # 14.5 TH/MM3 (1.8-7.7); BASOPHIL # 0.1 TH/MM3 (0-0.2); BASOPHIL % 0.7 % (0.0-2.0); HEMATOCRIT 35.4 % (35.0-46.0); HEMOGLOBIN 12.3 GM/DL (11.6-15.3); LYMPH % 7.4 % (9.0-44.0); LYMPHOCYTE # 1.3 TH/MM3 (1.0-4.8); MEAN CELL VOLUME 86.1 FL (80.0-100.0); MEAN CORPUSCULAR HEMOGLOBIN 29.8 PG (27.0-34.0); MEAN CORPUSCULAR HGB CONC 34.6 % (32.0-36.0); MEAN PLATELET VOLUME 9.6 FL (7.0-11.0); MONO % 7.8 % (0.0-8.0); MONOCYTE # 1.3 TH/MM3 (0-0.9); NEUT % 84.1 % (16.0-70.0); PLATELET COUNT 376 TH/MM3 (150-450); RED BLOOD COUNT 4.11 MIL/MM3 (4.00-5.30); RED CELL DISTRIBUTION WIDTH 12.9 % (11.6-17.2); WHITE BLOOD COUNT 17.3 TH/MM3 (4.0-11.0)
[2018-02-23 06:31] LABS: BICARBONATE 30.1 MEQ/L (21.0-32.0); CALCIUM 8.2 MG/DL (8.5-10.1); CREATININE 0.82 MG/DL (0.50-1.00)
[2018-02-23 08:00] VITALS: BP 144/69; PULSE 78; RESP 15; TEMP 97.9; O2SAT 96
[2018-02-23] MEDS: INSULIN NovoLIN REGULAR SUPPLEMENTAL SCALE SQ SCH ×2 (08:00→12:27)
[2018-02-23] MEDS: LISINOPRIL 20 MG TAB PO SCH (08:24)
[2018-02-23] MEDS: GABAPENTIN 300 MG CAP PO SCH (08:24)
[2018-02-23] MEDS: BACLOFEN 10 MG TAB PO SCH ×2 (08:25→12:26)
[2018-02-23] MEDS: CLOTRIMAZOLE 1% CREAM 15 GM TOPICAL SCH (09:00)
[2018-02-23] MEDS ORDERED: MULTIVITAMINS/MINERALS THERAPEUTIC TAB PO SCH (09:00)
[2018-02-23] MEDS ORDERED: DULoxetine HCl DR 60 MG CAP PO SCH (09:00)
--- NOTE | 2018-02-23 11:40 | HHI.DS ---
Discharge Summary Admission Date February 22, 2018 at 17:23 Discharge Date: February 23, 2018 Admitting Diagnosis (1) Cervical disc disease with myelopathy Diagnosis: Principal ICD Code: M50.00 - Cervical disc disorder with myelopathy, unspecified cervical region Status: Acute (2) Cervical spinal stenosis Diagnosis: Secondary ICD Code: M48.02 - Spinal stenosis, cervical region Status: Acute Procedures : 1. C6-7 anterior cervical discectomy, resection herniated nucleus pulposus 2. C6-7 anterior cervical interbody fusion, allograft bone 3. C6-7 anterior cervical instrumentation 4. Removal previous inferior C5-6 level anterior cervical plate CBC/BMP: 02/23/18 0405 02/23/18 0405 Significant Findings Laboratory Tests Test 02/23/18 04:05 White Blood Count 17.3 TH/MM3 (4.0-11.0) Neutrophils (%) (Auto) 84.1 % (16.0-70.0) Lymphocytes (%) (Auto) 7.4 % (9.0-44.0) Neutrophils # (Auto) 14.5 TH/MM3 (1.8-7.7) Monocytes # (Auto) 1.3 TH/MM3 (0-0.9) Random Glucose 173 MG/DL (74-106) Calcium Level 8.2 MG/DL (8.5-10.1) Estimat Glomerular Filtration Rate 70 ML/MIN (>89) PE at Discharge GENERAL: The patient is awake and alert in bed visiting with her daughter and watching TV. Her affect is normal and she readily interacts. She is not in any distress. HEENT: Normocephalic, atraumatic. NECK: She is wearing the [place] J cervical collar. She has mild TTP to the superior midline cervical spine. The left anterior neck surgical incision is mildly TTP and the dressing is dry & intact w/the ZACHARY drain to bulb suction w/ minimal serosanguinous drainage noted. Since surgery the drain has put out 20 mL as of shift change this morning. RESPIRATORY: CTAB w/o W/R/R, equal excursion, non-laboured, on RA. CARDIOVASCULAR: S1S2 w/RRR w/o M/G/R. GASTROINTESTINAL: Abdomen soft, nontender, positive bowel sounds. MUSCULOSKELETAL: ESPINOZA spontaneously & purposefully w/o any difficulty. The posterior LUE is minimally TTP. NEUROLOGICAL: AAOx3. Speech clear & appropriate. Follows all commands w/o difficulty. Sensation to the extremities is decreased to light touch. Motor strength: LUE: Deltoid 4+ to 5/5, biceps 3/5, triceps 4+ to 5/5, wrist flexors & extensors 5/5 and hand intrinsics & extrinsics 3/5. RUE: Deltoid 4+ to 5/5, biceps 4+ to 5/5, triceps 4+ to 5/5, wrist flexors & extensors 5/5 and hand intrinsics & extrinsics 3/5. LLE: Iliopsoas 4+ to 5/5, quadriceps 4+ to 5/5, hamstring 4+ to 5/5, tibialis anterior 4+ to 5/5, gastrocnemius 4+ to 5/5 and extensor hallucis longus 4+ to 5/5. RLE: Iliopsoas 4+ to 5/5, quadriceps 4+ to 5/5, hamstring 4+ to 5/5, tibialis anterior 4+ to 5/5, gastrocnemius 4+ to 5/5 and extensor hallucis longus 4+ to 5/5. Hospital Course 02/22: The patient presented to [facility] to undergo a C6-7 anterior cervical discectomy with resection of a herniated nucleus pulposus followed by an cervical interbody fusion with instrumentation after removal of the previous inferior C5-6 level anterior cervical plate. Post-operatively she was admitted to a regular med/surg floor for further care and monitoring. 02/23: When seen this morning the patient states that she feels good. She states that she is doing better now than she did ten days after her prior cervical spine surgery. She has been up and ambulating and gave herself a sponge bath this morning. She is tolerating a diet. She does have some midline cervical spine soreness to the upper region as well as soreness to the surgical site. She denies any sore throat or difficulty swallowing. She is in the [place] J cervical collar. She continues to have the numbness to the extremities but says that it is better this morning that it has been. She still has some pain radiating down the left upper extremity. Pt Condition on Discharge: Good Discharge Disposition: Discharge Home Discharge Instructions DIET: Follow Instructions for: As Tolerated, No Restrictions ACTIVITIES You can perform: Weight Bearing As Geoff Activities to Avoid: Lifting/Bending, Strenuous Activity, Bathing, Shower ADDITIONAL Activity Instructio: Wear the cervical collar at all times. It may briefly be taken off for personal hygiene. No lifting, bending, pushing, pulling or other strenuous activity. The dressing on over the surgical incision may be removed on . After taking the outer dressing off leave the steri-strips on and let them fall off on their own. No showering until the surgical incision is totally healed. Use the flesh-coloured cervical collar when showering. Additional Information Take the pain medication as prescribed. Avoid taking any medication that contains NSAIDs (ibuprofen, naproxen, Motrin, Advil, Naprosyn) for at least three months. You may resume your aspirin five days after your surgery on . You may resume your atorvastatin (Lipitor) seven days after your surgery on 2017 Follow up on Monday at 1:30 PM for a wound check. If you are unable to keep your appointment call the office at [phone] to reschedule your follow up appointment. Chavez Cano February 23, 2018 11:40
[2018-02-23 12:00] VITALS: BP 147/70; PULSE 68; RESP 16; TEMP 97.9; O2SAT 97
[2018-02-23] MEDS ORDERED: HYDR-3583 PO (13:02)
--- NOTE | 2018-02-23 13:50 | HHI.DCPOC ---
Discharge Care Plan Diagnosis: (1) Cervical disc disease with myelopathy (2) Cervical spinal stenosis Your Health Problems Are: Incision/Drains Exercise Tolerance Goals to Promote Your Health * To prevent worsening of your condition and complications * To maintain your health at the optimal level Wear the cervical collar at all times. It may briefly be taken off for personal hygiene. No lifting, bending, pushing, pulling or other strenuous activity. The dressing on over the surgical incision may be removed on . After taking the outer dressing off leave the steri-strips on and let them fall off on their own. No showering until the surgical incision is totally healed. Use the flesh- coloured cervical collar when showering. Take the pain medication as prescribed. Avoid taking any medication that contains NSAIDs (ibuprofen, naproxen, Motrin, Advil, Naprosyn) for at least three months. You may resume your aspirin five days after your surgery on . You may resume your atorvastatin (Lipitor) seven days after your surgery on 2017 Follow up on Monday at 1:30 PM for a wound check. If you are unable to keep your appointment call the office at [phone] to reschedule your follow up appointment. Directions to Meet Your Goals Take your medications as prescribed Follow your dietary instruction Follow activity as directed Wear the cervical collar at all times. It may briefly be taken off for personal hygiene. No lifting, bending, pushing, pulling or other strenuous activity. The dressing on over the surgical incision may be removed on . After taking the outer dressing off leave the steri-strips on and let them fall off on their own. No showering until the surgical incision is totally healed. Use the flesh- coloured cervical collar when showering. Take the pain medication as prescribed. Avoid taking any medication that contains NSAIDs (ibuprofen, naproxen, Motrin, Advil, Naprosyn) for at least three months. You may resume your aspirin five days after your surgery on . You may resume your atorvastatin (Lipitor) seven days after your surgery on 2017 Follow up on Monday at 1:30 PM for a wound check. If you are unable to keep your appointment call the office at [phone] to reschedule your follow up appointment. Keep your appointments as scheduled Take your immunizations and boosters as scheduled If your symptoms worsen call your PCP, if no PCP go to Urgent Care Center or Emergency Room Smoking is Dangerous to Your Health. Avoid second hand smoke Call the 24-hour hour crisis hotline for domestic abuse at Chavez Cano February 23, 2018 13:50
[2018-02-23 16:00] VITALS: BP 136/66; PULSE 72; RESP 16; TEMP 98.1; O2SAT 95
== END 2018-02-23 16:23 | disposition home or self-care (01) ==
LOC: HSDC 11:20 → HSDI 17:23 → N06A 17:57
PROVIDERS: ADMIT Neurological Surgery; ATTEND Neurological Surgery
DX: M50.023 Cervical disc disorder at C6-C7 level with myelopathy (principal); M48.02 Spinal stenosis, cervical region; E11.9 Type 2 diabetes mellitus without complications; Z79.84 Long term (current) use of oral hypoglycemic drugs
CPT/HCPCS: 00600; 20931; 22551; 22845; 72020; 76000; 80048; 82948; 85025; 94150; 96372; 97161; C1713; G0378; G8987; G8988; J1100; J1580; J2250; J2370; J2405; J3010; J7120